=== PATIENT | female | born 1965 | race Caucasian/White ===

== ENCOUNTER 2025-03-23 08:28 | Day surgery (SDC) | payer MEDICAID ==
[2025-03-23] MEDS: Lactated Ringers 1,000 ML IV SCH (10:11)
[2025-03-23] MEDS ORDERED: Propofol 200 MG/20 ML SDV ONE (10:15)
[2025-03-23] MEDS ORDERED: fentaNYL 50 MCG/ML SDV ONE (10:15)
[2025-03-23] MEDS ORDERED: Midazolam 1 MG/ML 2 ML SDV ONE (10:15)
[2025-03-23] MEDS: Morphine 2 MG/ML SYRINGE IVPUSH PRN (13:36)
[2025-03-23] MEDS: Ondansetron 4 MG/2 ML SDV IVPUSH PRN (13:37)
== END 2025-03-23 15:15 | disposition home or self-care (01) ==
LOC: JP.SDS 08:28
PROVIDERS: ATTEND Surgery
DX: C20 Malignant neoplasm of rectum (principal)
CPT/HCPCS: 00811; 45380; 88305; 88341; 88342; J2250; J2270; J2405; J2704; J3010; J7120

== ENCOUNTER 2025-05-01 15:12 | Inpatient (IN) | payer MEDICAID ==
[2025-05-01 15:56] LABS: BASOPHILS ABSOLUTE AUTO 0.01 K/uL (0.00-0.10); BASOPHILS PERCENT AUTO 0.1 % (0.1-1.3); EOSINOPHILS ABSOLUTE AUTO 0.02 K/uL (0.00-0.40); EOSINOPHILS PERCENT AUTO 0.3 % (0.0-5.4); HEMOGLOBIN 13.3 g/dL (11.2-15.5); IMMATURE GRAN ABSOLUTE AUTO 0.02 K/uL (0.00-0.23); IMMATURE GRAN PERCENT AUTO 0.3 % (0.0-0.7); LYMPHOCYTES ABSOLUTE AUTO 0.74 K/uL (0.8-3.3); LYMPHOCYTES PERCENT AUTO 9.5 % (11.4-47.7); MEAN CORPUSCULAR HEMOGLOBIN 29.1 pg (31.6-35.5); MEAN CORPUSCULAR HGB CONC 34.1 g/dL (31.6-35.5); MEAN CORPUSCULAR VOLUME 85.3 fL (81.4-99.0); MONOCYTES ABSOLUTE AUTO 0.74 K/uL (0.20-0.90); MONOCYTES PERCENT AUTO 9.5 % (3.3-12.6); NEUTROPHILS ABSOLUTE AUTO 6.28 K/uL (1.0-7.6); NEUTROPHILS PERCENT AUTO 80.3 % (40.0-78.1); PLATELET COUNT,PLT 239 K/uL (130-375); RED BLOOD CELL COUNT 4.57 M/uL (3.77-5.24); WHITE BLOOD CELL COUNT,WBC 7.8 K/uL (3.2-11.0)
[2025-05-01] MEDS ORDERED: Na Phos,M-B/Na Phos,DI-B 60 ML, Mineral Oil 50 ML, Docusate Sodium 400 MG, Magnesium Ci... RECTAL ONE (15:57)
[2025-05-01 16:19] LABS: INR 1.1; PROTHROMBIN TIME 11.6 sec (9.2-10.6)
[2025-05-01] MEDS: Sodium Chloride 0.9% 80 ML IV SCH (16:19)
[2025-05-01] MEDS: Iopamidol 612 MG/ML 100 ML Bottle IV SCH (16:19)
[2025-05-01 16:27] LABS: ALANINE AMINOTRANSFERASE,ALT 31 U/L (12-78); ALBUMIN 2.9 g/dL (3.4-5.0); ALKALINE PHOSPHATASE 61 U/L (46-116); ASPARTATE AMNIOTRANSFERASE,AST 16 U/L (15-37); BILIRUBIN TOTAL 0.6 mg/dL (0.2-1.0); BLOOD UREA NITROGEN,BUN 11 mg/dL (7-18); CALCIUM 9.1 mg/dL (8.5-10.1); CARBON DIOXIDE,CO2 28 mmol/L (21-32); CHLORIDE,CL 100 mmol/L (100-108); CREATININE 0.6 mg/dL (0.6-1.0); EST CRCL DRUG DOSING (CG) 101.11 mL/min; ESTIMATED GFR 102 mL/min (>60); GLUCOSE RANDOM 130 mg/dL (74-106); POTASSIUM,K 3.4 mmol/L (3.6-5.2); PROTEIN TOTAL,TP 5.9 g/dL (6.4-8.2); SODIUM,NA 135 mmol/L (140-148)
[2025-05-01 16:31] LABS: ANION GAP 10.4 mmol/L (5.0-14.0)
[2025-05-01] MEDS: Sodium Chloride 0.9% 1,000 ML IV ONE (17:49)
[2025-05-01] MEDS: HYDROmorphone 0.5 MG/0.5 ML Syringe IVPUSH ONE (17:49)
[2025-05-01] MEDS: Na Phos,M-B/Na Phos,DI-B 60 ML, Mineral Oil 50 ML, Docusate Sodium 400 MG, Magnesium Ci... RECTAL ONE (17:54)
[2025-05-01] MEDS: Piperacillin/Tazobactam 4.5 GM in Sodium Chloride 0.9% 100 ML IV ONE (18:10)
[2025-05-01] MEDS: metroNIDAZOLE/Normal Saline 500 MG in Premix Bag 1 BAG IV ONE (19:07)
[2025-05-01] MEDS: Morphine 4 MG/ML Syringe IVPUSH ONE (19:08)
[2025-05-01] MEDS: Sodium Chloride 0.9% 1,000 ML IV SCH ×2 (19:15→21:54)
[2025-05-01] MEDS ORDERED: Naloxone 0.4 MG/ML SDV IVPUSH PRN (21:30)
[2025-05-01] MEDS ORDERED: Sodium Chloride 0.9% 10 ML Syringe FLUSH PRN (21:30)
[2025-05-01] MEDS: fentaNYL 50 MCG/HR Transdermal Patch TOP SCH (21:57)
[2025-05-01] MEDS: Morphine 2 MG/ML SYRINGE IVPUSH PRN (21:57)
[2025-05-01] MEDS: Potassium Chloride 10 MEQ in Premix Bag 1 BAG IV SCH (22:01)
[2025-05-01] MEDS: Dexamethasone 2 MG Tab PO SCH (22:01)
[2025-05-01] MEDS: Piperacillin/Tazobactam 4.5 GM in Sodium Chloride 0.9% 100 ML IV SCH (22:43)
[2025-05-01] MEDS: Acyclovir 200 MG Cap PO SCH (22:43)
[2025-05-01] MEDS: LORazepam ORAL Concentrate 1MG/0.5ML U/D SL PRN (22:47)
[2025-05-02] MEDS ORDERED: Piperacillin/Tazobactam 3.375 GM in Sodium Chloride 0.9% 50 ML IV SCH (00:01)
[2025-05-02 05:42] LABS: BASOPHILS PERCENT AUTO 0.1 % (0.1-1.3); EOSINOPHILS PERCENT AUTO 0.1 % (0.0-5.4); HEMATOCRIT 36.6 % (34.3-46.0); HEMOGLOBIN 12.3 g/dL (11.2-15.5); IMMATURE GRAN PERCENT AUTO 0.3 % (0.0-0.7); LYMPHOCYTES PERCENT AUTO 10.1 % (11.4-47.7); MEAN CORPUSCULAR HGB CONC 33.6 g/dL (31.6-35.5); MEAN CORPUSCULAR VOLUME 86.3 fL (81.4-99.0); MONOCYTES ABSOLUTE AUTO 0.53 K/uL (0.20-0.90); MONOCYTES PERCENT AUTO 7.7 % (3.3-12.6); NEUTROPHILS ABSOLUTE AUTO 5.64 K/uL (1.0-7.6); NEUTROPHILS PERCENT AUTO 81.7 % (40.0-78.1); PLATELET COUNT,PLT 214 K/uL (130-375); RED BLOOD CELL COUNT 4.24 M/uL (3.77-5.24); WHITE BLOOD CELL COUNT,WBC 6.9 K/uL (3.2-11.0)
[2025-05-02 05:50] LABS: BASOPHILS ABSOLUTE AUTO 0.01 K/uL (0.00-0.10); EOSINOPHILS ABSOLUTE AUTO 0.01 K/uL (0.00-0.40); IMMATURE GRAN ABSOLUTE AUTO 0.02 K/uL (0.00-0.23)
[2025-05-02 05:54] LABS: CALCIUM 8.7 mg/dL (8.5-10.1); CREATININE 0.6 mg/dL (0.6-1.0); EST CRCL DRUG DOSING (CG) 101.11 mL/min; POTASSIUM,K 3.9 mmol/L (3.6-5.2)
[2025-05-02 05:59] LABS: ANION GAP 9.9 mmol/L (5.0-14.0)
[2025-05-02] MEDS: Pantoprazole 40 MG Vial IVPUSH SCH (08:08)
[2025-05-02] MEDS: Cyclobenzaprine 5 MG Tab PO SCH (09:39)
[2025-05-02] MEDS: HYDROmorphone 1 MG/ML Syringe IVPUSH PRN (09:39)
[2025-05-02] MEDS: Dimethicone 20%/Zinc Oxide 25% 56 GM Spray Bottle TOP PRN (11:29)
[2025-05-02] MEDS: Piperacillin/Tazobactam/Dext 4.5 GM in Premix Bag 1 BAG IV SCH (14:03)
[2025-05-02] MEDS: Docusate Sodium 100 MG Cap PO SCH (21:52)
[2025-05-02] MEDS: Lidocaine/Prilocaine 2.5-2.5% Crm 5 GM Tube TOP ONE (22:53)
[2025-05-02] MEDS: Lidocaine/Prilocaine 2.5-2.5% Crm 5 GM Tube ONE (22:56)
[2025-05-03 07:34] LABS: HEMOGLOBIN 11.1 g/dL (11.2-15.5); MEAN CORPUSCULAR HEMOGLOBIN 28.9 pg (31.6-35.5); MEAN CORPUSCULAR HGB CONC 32.6 g/dL (31.6-35.5); MEAN CORPUSCULAR VOLUME 88.5 fL (81.4-99.0); RED BLOOD CELL COUNT 3.84 M/uL (3.77-5.24); WHITE BLOOD CELL COUNT,WBC 5.7 K/uL (3.2-11.0)
[2025-05-03 07:49] LABS: CALCIUM 8.5 mg/dL (8.5-10.1); CREATININE 0.6 mg/dL (0.6-1.0); EST CRCL DRUG DOSING (CG) 101.11 mL/min; POTASSIUM,K 3.4 mmol/L (3.6-5.2)
[2025-05-03 07:56] LABS: ANION GAP 10.4 mmol/L (5.0-14.0)
[2025-05-03] MEDS ORDERED: Docusate Sodium 100 MG Cap PO SCH (09:00)
[2025-05-03] MEDS: Polyethylene Glycol 3350 Powder 17 GM Packet PO SCH (09:12)
[2025-05-03] MEDS: Estradiol 0.5 MG Tab PO SCH ×2 (12:06→21:56)
[2025-05-04 06:01] LABS: HEMATOCRIT 34.2 % (34.3-46.0); HEMOGLOBIN 11.6 g/dL (11.2-15.5); MEAN CORPUSCULAR HEMOGLOBIN 29.4 pg (31.6-35.5); MEAN CORPUSCULAR HGB CONC 33.9 g/dL (31.6-35.5); MEAN CORPUSCULAR VOLUME 86.8 fL (81.4-99.0); RED BLOOD CELL COUNT 3.94 M/uL (3.77-5.24); WHITE BLOOD CELL COUNT,WBC 4.5 K/uL (3.2-11.0)
[2025-05-04 06:24] LABS: A/G RATIO 0.9 (1.2-2.2); ALANINE AMINOTRANSFERASE,ALT 25 U/L (12-78); ALBUMIN 2.4 g/dL (3.4-5.0); ALKALINE PHOSPHATASE 45 U/L (46-116); ANION GAP 9.6 mmol/L (5.0-14.0); ASPARTATE AMNIOTRANSFERASE,AST 15 U/L (15-37); BILIRUBIN TOTAL 0.6 mg/dL (0.2-1.0); BLOOD UREA NITROGEN,BUN 9 mg/dL (7-18); C-REACTIVE PROTEIN 1.33 mg/dL (<0.50); CALCIUM 8.7 mg/dL (8.5-10.1); CARBON DIOXIDE,CO2 27 mmol/L (21-32); CHLORIDE,CL 105 mmol/L (100-108); CREATININE 0.5 mg/dL (0.6-1.0); EST CRCL DRUG DOSING (CG) 121.34 mL/min; ESTIMATED GFR 107 mL/min (>60); GLUCOSE RANDOM 82 mg/dL (74-106); POTASSIUM,K 3.6 mmol/L (3.6-5.2); PROTEIN TOTAL,TP 5.1 g/dL (6.4-8.2); SODIUM,NA 138 mmol/L (140-148)
[2025-05-04] MEDS ORDERED: Sodium Chloride 0.9% 100 ML IV SCH (10:48)
[2025-05-04] MEDS: Iopamidol 755 Mg/ML 100 ML Bottle IV ONE (10:54)
[2025-05-04] MEDS: Sodium Chloride 0.9% 10 ML Syringe FLUSH ONE ×2 (10:54→14:11)
[2025-05-04] MEDS ORDERED: Sodium Chloride 0.9% 10 ML SDV IV SCH ×2 (11:00→15:00)
[2025-05-04] MEDS ORDERED: Sodium Chloride 0.9% 100 ML IV ONE (11:44)
[2025-05-04] MEDS ORDERED: Iopamidol 755 Mg/ML 100 ML Bottle IV ONE (11:44)
[2025-05-04] MEDS ORDERED: fentaNYL 50 MCG/HR Transdermal Patch TOP SCH (15:00)
[2025-05-04] MEDS: Sodium Chloride 0.9% 1,000 ML IV SCH (17:37)
[2025-05-04] MEDS: Docusate Sodium 100 MG Cap PO SCH (20:35)
[2025-05-05] MEDS: Pantoprazole 40 MG Tab.CR PO SCH (07:50)
[2025-05-05] MEDS: Dexamethasone 2 MG Tab PO SCH (10:02)
[2025-05-05] MEDS: FENTANYL PATCH CHECK TOP SCH (10:04)
[2025-05-05] MEDS: fentaNYL 12 MCG/HR Transdermal Patch TRDERM ONE (11:12)
[2025-05-05] MEDS: fentaNYL 50 MCG/HR Transdermal Patch TRDERM ONE (11:14)
[2025-05-05] MEDS: HYDROmorphone 2 MG Tab PO PRN (12:08)
[2025-05-05] MEDS: Benzocaine 20% Top Spray 56 GM Bottle TOP PRN (14:24)
[2025-05-05] MEDS: Polyethylene Glycol 3350 Powder 17 GM Packet PO SCH (15:04)
[2025-05-06] MEDS: Lactulose Soln 10 GM/15 ML 15 ML UD Cup PO ONE (12:35)
[2025-05-07 06:19] LABS: HEMATOCRIT 38.9 % (34.3-46.0); HEMOGLOBIN 12.9 g/dL (11.2-15.5); MEAN CORPUSCULAR HEMOGLOBIN 29.2 pg (31.6-35.5); MEAN CORPUSCULAR HGB CONC 33.2 g/dL (31.6-35.5); RED BLOOD CELL COUNT 4.42 M/uL (3.77-5.24); WHITE BLOOD CELL COUNT,WBC 4.6 K/uL (3.2-11.0)
[2025-05-07 06:45] LABS: C-REACTIVE PROTEIN 0.52 mg/dL (<0.50); CALCIUM 8.9 mg/dL (8.5-10.1); CREATININE 0.6 mg/dL (0.6-1.0); EST CRCL DRUG DOSING (CG) 101.11 mL/min; POTASSIUM,K 3.4 mmol/L (3.6-5.2)
[2025-05-07 06:47] LABS: ANION GAP 7.4 mmol/L (5.0-14.0)
[2025-05-07] MEDS: Potassium Chloride 10 MEQ in Premix Bag 1 BAG IV SCH (09:48)
[2025-05-07] MEDS ORDERED: fentaNYL 250 MCG/5 ML SDV ONE ×2 (13:20→14:54)
[2025-05-07] MEDS ORDERED: Succinylcholine 200 MG/10 ML MDV ONE (13:21)
[2025-05-07] MEDS ORDERED: Dexamethasone 4 MG/ML SDV ONE (13:21)
[2025-05-07] MEDS ORDERED: Ondansetron 4 MG/2 ML SDV ONE (13:21)
[2025-05-07] MEDS ORDERED: Propofol 200 MG/20 ML SDV ONE (13:21)
[2025-05-07] MEDS ORDERED: Glycopyrrolate 0.2 MG/ML 5 ML MDV ONE (13:21)
[2025-05-07] MEDS ORDERED: Neostigmine Methylsulfate 10 MG/10 ML MDV ONE (13:21)
[2025-05-07] MEDS ORDERED: Labetalol 20 MG/4 ML Syringe ONE (15:31)
[2025-05-07] MEDS: Bupivacaine 0.25%/EPINEPHrine 1:200,000 30 ML SDV ONE ×2 (15:44→15:45)
[2025-05-07] MEDS ORDERED: Lactated Ringers 1,000 ML ONE (15:58)
[2025-05-08 06:05] LABS: HEMATOCRIT 38.6 % (34.3-46.0); HEMOGLOBIN 12.7 g/dL (11.2-15.5); MEAN CORPUSCULAR HEMOGLOBIN 29.1 pg (31.6-35.5); MEAN CORPUSCULAR HGB CONC 32.9 g/dL (31.6-35.5); MEAN CORPUSCULAR VOLUME 88.3 fL (81.4-99.0); RED BLOOD CELL COUNT 4.37 M/uL (3.77-5.24); WHITE BLOOD CELL COUNT,WBC 5.2 K/uL (3.2-11.0)
[2025-05-08 06:19] LABS: POTASSIUM,K 3.5 mmol/L (3.6-5.2)
[2025-05-08 06:20] LABS: CALCIUM 9.2 mg/dL (8.5-10.1); CREATININE 0.8 mg/dL (0.6-1.0); EST CRCL DRUG DOSING (CG) 75.83 mL/min
[2025-05-08 06:37] LABS: ANION GAP 8.5 mmol/L (5.0-14.0)
[2025-05-08] MEDS: Ondansetron 4 MG/2 ML SDV IV PRN (09:52)
[2025-05-08] MEDS: Magnesium Hydroxide 400 MG/5 ML Susp 30 ML Cup PO ONE (10:33)
[2025-05-08] MEDS: Potassium Chloride 20 MEQ Tab.ER PO ONE (10:33)
[2025-05-09 06:03] LABS: A/G RATIO 0.8 (1.2-2.2); ALANINE AMINOTRANSFERASE,ALT 34 U/L (12-78); ALBUMIN 2.4 g/dL (3.4-5.0); ALKALINE PHOSPHATASE 51 U/L (46-116); ASPARTATE AMNIOTRANSFERASE,AST 21 U/L (15-37); BILIRUBIN TOTAL 0.4 mg/dL (0.2-1.0); BLOOD UREA NITROGEN,BUN 5 mg/dL (7-18); CALCIUM 9.1 mg/dL (8.5-10.1); CARBON DIOXIDE,CO2 31 mmol/L (21-32); CHLORIDE,CL 103 mmol/L (100-108); CREATININE 0.7 mg/dL (0.6-1.0); EST CRCL DRUG DOSING (CG) 86.67 mL/min; ESTIMATED GFR 98 mL/min (>60); GLUCOSE RANDOM 99 mg/dL (74-106); POTASSIUM,K 4.1 mmol/L (3.6-5.2); PROTEIN TOTAL,TP 5.5 g/dL (6.4-8.2); SODIUM,NA 137 mmol/L (140-148)
[2025-05-09 06:16] LABS: ANION GAP 7.1 mmol/L (5.0-14.0)
[2025-05-09] MEDS: Trolamine Salicylate/Aloe Vera 10% Crm 85 GM Tube TOP PRN (08:20)
[2025-05-09] MEDS: Magnesium Hydroxide 400 MG/5 ML Susp 30 ML Cup PO ONE (10:11)
[2025-05-09] MEDS ORDERED: fentaNYL 50 MCG/HR Transdermal Patch TRDERM ONE (10:30)
[2025-05-09] MEDS: fentaNYL 12 MCG/HR Transdermal Patch ONE (14:28)
[2025-05-09] MEDS: Tamsulosin 0.4 MG Cap.ER PO SCH (21:45)
[2025-05-10] MEDS: Ondansetron 4 MG Tab.DIS PO ONE (07:50)
[2025-05-10] MEDS ORDERED: Magnesium Citrate Solution 296 ML Bottle PO ONE (08:49)
[2025-05-10] MEDS: Magnesium Hydroxide 400 MG/5 ML Susp 30 ML Cup PO ONE (11:46)
[2025-05-11] MEDS: fentaNYL 12 MCG/HR Transdermal Patch ONE (09:42)
[2025-05-11] MEDS ORDERED: fentaNYL 50 MCG/HR Transdermal Patch TRDERM ONE (10:00)
[2025-05-11] MEDS: Magnesium Hydroxide 400 MG/5 ML Susp 30 ML Cup PO ONE (11:57)
[2025-05-12] MEDS: Polyethylene Glycol 3350 Powder 17 GM Packet PO SCH (12:58)
[2025-05-12] MEDS: Sennosides/Docusate Sodium 50-8.6 MG Tab PO SCH (20:38)
[2025-05-13] MEDS: fentaNYL 12 MCG/HR Transdermal Patch TRDERM SCH (09:32)
[2025-05-13] MEDS: fentaNYL 50 MCG/HR Transdermal Patch TRDERM SCH (09:33)
== END 2025-05-14 10:30 | disposition home or self-care (01) | DRG 329 ==
LOC: JP.ED 15:12 → JP.MS 21:03
PROVIDERS: ADMIT Nurse Practitioner; ATTEND Hospitalist
PROC: 0D1M0Z4 Bypass Descending Colon to Cutaneous, Open Approach (ICD-10-PCS; principal; 2025-05-01)
DX: C20 Malignant neoplasm of rectum (principal); K63.1 Perforation of intestine (nontraumatic); Z66 Do not resuscitate; E87.6 Hypokalemia; F41.9 Anxiety disorder, unspecified; R33.8 Other retention of urine; F32.A Depression, unspecified; Z98.890 Other specified postprocedural states; Z90.49 Acquired absence of other specified parts of digestive tract; Z90.710 Acquired absence of both cervix and uterus; Z79.899 Other long term (current) drug therapy
CPT/HCPCS: 36415; 51702; 71260; 74174; 74177; 80048; 80053; 83605; 83735; 84484; 85025; 85027; 85610; 86140; 87040; 93005; 93010; 96365; 96367; 96375; 99222; 99232; 99238; 99284; 99285-25; A9270-GY; C1751; J0330; J1100; J1171; J1596; J1836; J1920; J2270; J2405; J2470; J2543; J2704; J2710; J3010; J3480; J7030; J7120; J8540; Q0162; Q9967

== ENCOUNTER 2025-05-25 23:15 | Emergency (ER) | payer MEDICAID | END 2025-05-26 00:06 | disposition home or self-care (01) | LOC: JP.ED 23:15 → EEVIPCON 23:15 → JP.ED 05-26 00:06 | DX: K94.09 Other complications of colostomy (principal); Z79.899 Other long term (current) drug therapy | CPT/HCPCS: 99283 ==

== ENCOUNTER 2025-09-25 11:28 | Inpatient (IN) | payer MEDICAID ==
[2025-09-25] MEDS ORDERED: Hyoscyamine 0.125 MG Tab.SL SL PRN (12:07)
[2025-09-25] MEDS ORDERED: Ondansetron 4 MG Tab.DIS PO PRN (12:10)
[2025-09-25] MEDS: fentaNYL 100 MCG/HR Transdermal Patch TRDERM SCH (13:46)
[2025-09-25] MEDS: fentaNYL 25 MCG/HR Transdermal Patch TRDERM SCH (13:47)
[2025-09-25] MEDS: Sennosides/Docusate Sodium 50-8.6 MG Tab PO SCH (13:51)
[2025-09-25] MEDS ORDERED: FENTANYL 75 MCG TRDERM SCH (14:00)
[2025-09-27] MEDS: Lactulose Soln 10 GM/15 ML 15 ML UD Cup PO PRN (09:30)
[2025-09-27] MEDS: fentaNYL 50 MCG/HR Transdermal Patch TRDERM SCH (14:06)
[2025-09-28] MEDS: Lactulose Soln 10 GM/15 ML 15 ML UD Cup PO SCH (09:04)
== END 2025-09-29 13:10 | disposition hospice, home (50) | DRG 948 ==
LOC: JP.MS 11:28
PROVIDERS: ADMIT Internal Medicine; ATTEND Hospitalist
PROC: 3E0DX3Z Introduction of Anti-inflammatory into Mouth and Pharynx, External Approach (ICD-10-PCS; principal; 2025-09-25)
DX: G89.3 Neoplasm related pain (acute) (chronic) (principal); C20 Malignant neoplasm of rectum; Z66 Do not resuscitate; Z51.5 Encounter for palliative care; C78.7 Secondary malignant neoplasm of liver and intrahepatic bile duct; C78.02 Secondary malignant neoplasm of left lung; C78.01 Secondary malignant neoplasm of right lung; C79.72 Secondary malignant neoplasm of left adrenal gland; C79.71 Secondary malignant neoplasm of right adrenal gland; F41.9 Anxiety disorder, unspecified; F32.A Depression, unspecified; Z90.710 Acquired absence of both cervix and uterus; Z93.3 Colostomy status; Z79.899 Other long term (current) drug therapy; Z79.1 Long term (current) use of non-steroidal anti-inflammatories (NSAID); Z98.890 Other specified postprocedural states; Z90.49 Acquired absence of other specified parts of digestive tract; Z90.89 Acquired absence of other organs
CPT/HCPCS: 99223; 99232; 99238; A9270-GY; J8540

== ENCOUNTER 2025-11-01 13:15 | Inpatient (IN) | payer MEDICAID ==
[2025-11-01] MEDS ORDERED: Ondansetron 4 MG Tab.DIS PO PRN (13:55)
[2025-11-01] MEDS: LORazepam 2 MG/ML SDV IVPUSH PRN (14:41)
[2025-11-01] MEDS: fentaNYL 100 MCG/HR Transdermal Patch TRDERM SCH (14:42)
[2025-11-01] MEDS: LORazepam 2 MG/ML SDV ONE (15:00)
[2025-11-01] MEDS ORDERED: Hyoscyamine 0.125 MG Tab.SL SL PRN (15:15)
[2025-11-01] MEDS: Lactulose Soln 10 GM/15 ML 15 ML UD Cup PO SCH (16:54)
[2025-11-01] MEDS: Sennosides/Docusate Sodium 50-8.6 MG Tab PO SCH (21:28)
[2025-11-02] MEDS: Lactulose Soln 10 GM/15 ML ML 473 ML Bottle PO SCH (09:34)
[2025-11-04] MEDS: Magnesium Citrate Solution 296 ML Bottle PO ONE (12:09)
== END 2025-11-05 13:37 | disposition hospice, inpatient (51) | DRG 948 ==
LOC: JP.MS 13:52
PROVIDERS: ADMIT Hospitalist; ATTEND Internal Medicine
DX: G89.3 Neoplasm related pain (acute) (chronic) (principal); C20 Malignant neoplasm of rectum; C78.7 Secondary malignant neoplasm of liver and intrahepatic bile duct; C78.00 Secondary malignant neoplasm of unspecified lung; C79.70 Secondary malignant neoplasm of unspecified adrenal gland; Z93.3 Colostomy status; Z51.5 Encounter for palliative care; F41.9 Anxiety disorder, unspecified; Z79.1 Long term (current) use of non-steroidal anti-inflammatories (NSAID); Z79.899 Other long term (current) drug therapy; F32.A Depression, unspecified; Z98.890 Other specified postprocedural states; Z90.710 Acquired absence of both cervix and uterus; Z66 Do not resuscitate
CPT/HCPCS: 99223; 99232; 99238; A9270-GY; J1171; J2060